=== PATIENT | female | born 2000 | race Hispanic/Latino ===

== ENCOUNTER 2022-01-16 13:44 | Emergency (ER) | payer OTHER ==
[2022-01-16] MEDS ORDERED: IBUPROFEN 200 MG TAB PO ONE (14:20)
--- NOTE | 2022-01-16 15:30 | EDPHYS ---
Physician Documentation [facility] Name: Blanca Oquendo Age: 21 yrs Sex: Female : 2000 Arrival Date: 01/16/2022 Time: 13:50 Bed 10 Private MD: ED Physician Royer Odom HPI: 01/16 14:04 This 21 yrs old Female presents to ER via Ambulatory with complaints of snw Headache, Breathing Difficulty. 14:04 The patient complains of pain to the forehead. Onset: The symptoms/episode snw began/occurred acutely. Associated signs and symptoms: Pertinent negatives: altered mental status, neck stiffness, Photophobia vertigo. Severity of symptoms: At its worst the pain was moderate, in the emergency department the pain is unchanged. The patient has not experienced similar symptoms in the past. The patient has not recently seen a physician. 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 - Social history:: Smoking status: Reported history of juuling and/or vaping. Patient uses alcohol, occasionally. ROS: 14:03 Constitutional: Negative for fever, chills, and weight loss, Positive for malaise, snw congestion Eyes: Negative for injury, pain, redness, and discharge, ENT: Negative for injury, pain, and discharge, + congestion Neck: Negative for injury, pain, and swelling, Cardiovascular: Negative for chest pain, palpitations, and edema, Respiratory: Negative for shortness of breath, cough, wheezing, and pleuritic chest pain, Abdomen/GI: Negative for abdominal pain, nausea, vomiting, diarrhea, and constipation, Back: Negative for injury and pain, : Negative for injury, bleeding, discharge, and swelling, MS/Extremity: Negative for injury and deformity, Skin: Negative for injury, rash, and discoloration. 14:03 Neuro: Positive for headache. Exam: 14:02 Constitutional: This is a well developed, well nourished patient who is awake, alert, snw and in no acute distress. Head/Face: Normocephalic, atraumatic. Eyes: Pupils equal round and reactive to light, extra-ocular motions intact. Lids and lashes normal. Conjunctiva and sclera are non-icteric and not injected. Cornea within normal limits. Periorbital areas with no swelling, redness, or edema. 14:02 Neck: Trachea midline, no thyromegaly or masses palpated, and no cervical lymphadenopathy. Supple, full range of motion without nuchal rigidity, or vertebral point tenderness. No Meningismus. Chest/axilla: Normal chest wall appearance and motion. Nontender with no deformity. No lesions are appreciated. Cardiovascular: Regular rate and rhythm with a normal S1 and S2. No gallops, murmurs, or rubs. Normal PMI, no JVD. No pulse deficits. Respiratory: Lungs have equal breath sounds bilaterally, clear to auscultation and percussion. No rales, rhonchi or wheezes noted. No increased work of breathing, no retractions or nasal flaring. Abdomen/GI: Soft, non-tender, with normal bowel sounds. No distension or tympany. No guarding or rebound. No evidence of tenderness throughout. Back: No spinal tenderness. No costovertebral tenderness. Full range of motion. Skin: Warm, dry with normal turgor. Normal color with no rashes, no lesions, and no evidence of cellulitis. MS/ Extremity: Pulses equal, no cyanosis. Neurovascular intact. Full, normal range of motion. Neuro: Awake and alert, GCS 15, oriented to person, place, time, and situation. Cranial nerves II-XII grossly intact. Motor strength 5/5 in all extremities. Sensory grossly intact. Cerebellar exam normal. Normal gait. 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 Vital Signs: 13:56 BP 124 / 87; Pulse 69; Resp 18; Temp 98.9; Pulse Ox 100% ; Weight 58.51 kg; Height 5 ap3 ft. 5 in. (165.10 cm); 13:56 Body Mass Index 21.47 (58.51 kg, 165.10 cm) ap3 Willow Coma Score: 15:32 Eye Response: spontaneous(4). Verbal Response: oriented(5). Motor Response: obeys snw commands(6). Total: 15. MDM: 14:06 Patient medically screened. snw 15:32 Data reviewed: vital signs, nurses notes. Data interpreted: Pulse oximetry: on room air snw is 100 %. Interpretation: normal. Counseling: I had a detailed discussion with the patient and/or guardian regarding: the historical points, exam findings, and any diagnostic results supporting the discharge/admit diagnosis, lab results, the need for outpatient follow up, to return to the emergency department if symptoms worsen or persist or if there are any questions or concerns that arise at home. Special discussion: Based on the history and exam findings, there is no indication for further emergent testing or inpatient evaluation. I discussed with the patient/guardian the need to see the primary care provider for further evaluation of the symptoms. 01/16 14:02 Order name: Flu snw 01/16 14:02 Order name: Strep snw 01/16 14:02 Order name: SARS RAPID snw 01/16 14:54 Order name: Influenza Screen (A ; Complete Time: 14:54 EDMS 01/16 14:54 Order name: Group A Streptococcus Rapid Sc; Complete Time: 14:54 EDMS 01/16 15:26 Order name: SARS-COV-2 RT PCR; Complete Time: 15:26 EDMS Administered Medications: 14:32 Drug: Motrin (ibuprofen) 600 mg Route: PO; ss Disposition: 15:53 PA/WINCHER's history reviewed, patient interviewed, and examined. I agree with assessment [id number] and care plan and confirm the diagnosis (es) above. Attestation: The patient's history, exam findings, diagnostics, and a summary of any interventions or procedures was reviewed in detail with Jayna Florez RN. Disposition Summary: 01/16/22 15:30 Discharge Ordered Location: Home snw Condition: Stable snw Diagnosis - Allergic rhinitis, unspecified snw Followup: snw - With: Emergency Department - When: As needed - Reason: Worsening of condition Followup: snw - With: Private Physician - When: 2 - 3 days - Reason: Recheck today's complaints, Continuance of care, Re-evaluation by your physician Discharge Instructions: - Discharge Summary Sheet snw - General Headache Without Cause snw - Allergic Rhinitis, Adult snw - Form - Headache Record snw Forms: - Medication Reconciliation Form snw - Thank You Letter snw - Antibiotic Education snw - Prescription Opioid Use snw - Work release form Prescriptions: - Zyrtec 10 mg Oral Tablet - take 1 tablet by ORAL route once daily As needed; 20 tablet; Refills: 0, snw Product Selection Permitted - Pepcid 20 mg Oral Tablet - take 1 tablet by ORAL route once daily; 20 tablet; Refills: 0, Product snw Selection Permitted Signatures: Dispatcher [employer] EDKinza Flower FNP-C JEWELRY MOLD MAKER-[place] Jayna Florez RN RN Lakesha Ramos RN RN ap3 Royer Odom MD MD jr11
--- NOTE | 2022-01-16 15:30 | ER ---
Nurse's Notes [facility] Name: Blanca Oquendo Age: 21 yrs Sex: Female : 2000 Arrival Date: 01/16/2022 Time: 13:50 Bed 10 Private MD: Diagnosis: Allergic rhinitis, unspecified Presentation: 01/16 13:56 Chief complaint: Patient states: she started having a headache Sunday01/11/2022, and ap3 it has not gotten any better or any worse since. patient states she does not have any nausea or vomiting associated with the pain. Patient reports being around people who have been sick, and she has been coughing with mild congestion. Coronavirus screen: At this time, the client does not indicate any symptoms associated with coronavirus-19. Ebola Screen: No symptoms or risks identified at this time. Initial Sepsis Screen: Does the patient meet any 2 criteria? No. Patient's initial sepsis screen is negative. Does the patient have a suspected source of infection? No. Patient's initial sepsis screen is negative. Risk Assessment: Do you want to hurt yourself or someone else? Patient reports no desire to harm self or others. Onset of symptoms was January 11, 2022. 13:56 Method Of Arrival: Ambulatory ap3 13:56 Acuity: MEREDITH 3 ap3 Triage Assessment: 14:00 Headache History: The patient has had previous headaches and this one is similar to ap3 previous episodes. General: Appears. General: Appears uncomfortable, Behavior is calm, cooperative. Pain: Complains of pain in head Pain currently is 7 out of 10 on a pain scale. Pain began gradually, last sunday Also complains of no other associated symptoms. EENT: Reports pain when swallowing. Neuro: Level of Consciousness is awake, alert, obeys commands, Oriented to person, place, time, situation, Gait is steady, Speech is normal. Cardiovascular: Patient's skin is warm and dry. Respiratory: Reports cough that is Airway is patent Respiratory effort is even, unlabored, Respiratory pattern is regular, symmetrical. 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 - Social history:: Smoking status: Reported history of juuling and/or vaping. Patient uses alcohol, occasionally. Screenin:00 Abuse screen: Denies threats or abuse. Nutritional screening: No deficits noted. ap3 Tuberculosis screening: No symptoms or risk factors identified. Fall Risk None identified. Assessment: 15:42 General: Appears in no apparent distress. comfortable, Behavior is calm, cooperative. ss Neuro: Level of Consciousness is awake, alert, obeys commands, Oriented to person, place, time, situation. Cardiovascular: Capillary refill < 3 seconds is brisk in bilateral fingers. Respiratory: Airway is patent Respiratory effort is even, unlabored, Respiratory pattern is regular, symmetrical. Derm: Skin is intact, is healthy with good turgor, Skin is dry, Skin is pink, warm \T\ dry. normal. Musculoskeletal: Circulation, motion, and sensation intact. Range of motion: intact in all extremities, Swelling absent. Vital Signs: 13:56 BP 124 / 87; Pulse 69; Resp 18; Temp 98.9; Pulse Ox 100% ; Weight 58.51 kg; Height 5 ap3 ft. 5 in. (165.10 cm); 13:56 Body Mass Index 21.47 (58.51 kg, 165.10 cm) ap3 Gely Coma Score: 15:32 Eye Response: spontaneous(4). Verbal Response: oriented(5). Motor Response: obeys snw commands(6). Total: 15. ED Course: 13:50 Patient arrived in ED. rg4 13:52 Kinza Church FNP-C [facility] snw 13:52 Royer Odom MD is Attending Physician. snw 13:58 Triage completed. ap3 14:01 Arm band placed on right wrist. ap3 14:18 Jayna Florez, ROHAN is Primary Nurse. ss 15:42 Patient has correct armband on for positive identification. Bed in low position. Call ss light in reach. 15:42 No provider procedures requiring assistance completed. Patient did not have IV access ss during this emergency room visit. Administered Medications: 14:32 Drug: Motrin (ibuprofen) 600 mg Route: PO; ss Medication: 14:01 VIS not applicable for this client. ap3 Outcome: 15:30 Discharge ordered by . snw 15:43 Discharged to home ambulatory, with family. 15:43 Condition: good 15:43 Discharge instructions given to patient, family, Instructed on discharge instructions, follow up and referral plans. Demonstrated understanding of instructions, follow-up care. 15:43 Patient left the ED. Signatures: Kinza Church, PHYSICIAN RELATIONS REPRESENTATIVE-C PHYSICIAN RELATIONS REPRESENTATIVE-Csnw Jayna Florez RN RN ss Ally Srivastava rg4 Lakesha Ramos RN RN ap3
[2022-01-16 16:09] VITALS: BP 124/87; TEMP 98.9; O2SAT 100
== END 2022-01-16 15:43 | disposition home or self-care (01) ==
LOC: ER 13:44
DX: J30.9 Allergic rhinitis, unspecified (principal); Z88.6 Allergy status to analgesic agent; Z20.822 Contact with and (suspected) exposure to COVID-19
CPT/HCPCS: 87070; 87081; 87804 ×2; 99283; U0003

== ENCOUNTER → 2023-06-29 | Emergency (ER) | payer OTHER ==
--- NOTE | 2023-06-29 18:45 | RAD REPORT ---
[facility]25 pm CLINICAL HISTORY: CHEST PAIN COMPARISON: Chest Pa And Lat (2 Views) dated 11/08/2022 TECHNIQUE: Portable AP view of the chest. FINDINGS: The lungs are clear. No pneumothorax or effusion. The cardiomediastinal contours are unre markable. IMPRESSION: No acute cardiopulmonary process.
[2023-06-29 18:59] LABS: Sqamous Epithelial <5 /HPF (None Seen); Urine Bacteria <20 /HPF (<20); Urine Bilirubin NEGATIVE (Negative); Urine Blood Negative (Negative); Urine Clarity Turbid (Clear); Urine Color Light-Yellow (Yellow); Urine Culture Reflex Order NOT NEEDED; Urine Glucose NEGATIVE (Negative); Urine Ketones NEGATIVE (Negative); Urine Microscopic Reflex YN ORDER UMIC; Urine Mucus Slight /HPF (None Seen); Urine Nitrite NEGATIVE (Negative); Urine Protein NEGATIVE (Negative); Urine RBC <5 /HPF (None Seen); Urine Urobilinogen Normal (Normal); Urine WBC <5 /HPF (<5)
--- NOTE | 2023-06-29 20:00 | EDPHYS ---
Physician Documentation [facility] Name: Blanca Oquendo Age: 23 yrs Sex: Female : 2000 Arrival Date: 06/29/2023 Time: 17:50 Bed 12 Private MD: ED Physician Vamshi Lang HPI: 06/29 00:25 This 23 yrs old Female presents to ER via Ambulatory with complaints of Back kb Pain. 00:25 Patient is a 23-year-old female who presents for diffuse back pain,, chest pain, kb abdominal tightness that started 1 week ago. Denies nausea, vomiting, diarrhea, constipation, fever, urinary symptoms. States she has anxiety and believes the symptoms may be due to anxiety.. Historical: - Allergies: 06/28 18:14 Codeine; ll1 - Home Meds: 18:14 None [Active]; ll1 - PMHx: 18:14 Heart murmur; ll1 - PSHx: 18:14 ear surgery; ll1 - Immunization history:: Adult Immunizations unknown. - Social history:: Smoking status: Patient denies any tobacco usage or history of. ROS: 06/29 00:25 Constitutional: As per HPI kb Exam: 00:25 Constitutional: This is a well developed, well nourished patient who is awake, alert, kb and in no acute distress. Head/Face: Normocephalic, atraumatic. ENT: Moist Mucous membranes Neck: Trachea midline, no thyromegaly or masses palpated, and no cervical lymphadenopathy. Supple, full range of motion without nuchal rigidity, or vertebral point tenderness. No Meningismus. Cardiovascular: Regular rate Respiratory: Respirations even and unlabored. No increased work of breathing. Talking in full sentences Abdomen/GI: Soft, non-tender. No distention Back: No spinal tenderness. No costovertebral tenderness. Full range of motion. Skin: Warm, dry with normal turgor. Normal color. MS/ Extremity: Pulses equal, no cyanosis. Neurovascular intact. Full, normal range of motion. Neuro: Awake and alert, GCS 15, oriented to person, place, time, and situation. Moves all extremities. Normal gait. Vital Signs: 06/28 18:12 BP 120 / 90; Pulse 85; Resp 16; Temp 97.8; Pulse Ox 100% on R/A; Weight 58.97 kg; ll1 Height 5 ft. 0 in. ; Pain 7/10; 20:15 BP 107 / 88; Pulse 72; Resp 19; Pulse Ox 99% on R/A; kd3 18:12 Body Mass Index 25.39 (58.97 kg, 152.4 cm) ll1 18:12 Pain Scale: Adult ll1 MDM: 17:54 Patient medically screened. kb 06/29 00:26 Differential diagnosis: Abnormal EKG, pneumonia, UTI, anxiety. Data reviewed: vital kb signs, nurses notes. Test considered but Not performed: Labs: CBC, CMP considered but patient has no abdominal tenderness. Historians other than the Patient: Parent: Mother. Counseling: I had a detailed discussion with the patient and/or guardian regarding the historical points, exam findings, and any diagnostic results supporting the discharge/admit diagnosis, lab results, radiology results, the need for outpatient follow up, a family practitioner, to return to the emergency department if symptoms worsen or persist or if there are any questions or concerns that arise at home. 06/28 18:12 Order name: Test, Urine; Complete Time: 19:00 kb 06/28 18:12 Order name: Urinalysis w/ reflexes; Complete Time: 19:00 kb 06/28 18:12 Order name: Chest Single View XRAY; Complete Time: 18:48 kb 06/28 18:12 Order name: EKG; Complete Time: 18:12 kb 06/28 18:12 Order name: EKG - Nurse/Tech; Complete Time: 19:22 kb Administered Medications: No medications were administered Disposition Summary: 06/29/23 19:59 Discharge Ordered Notes: Location: Home kb Condition: Stable kb Diagnosis - Back Pain kb - Chest pain, unspecified kb Followup: kb - With: Emergency Department - When: As needed - Reason: Worsening of condition Followup: kb - With: Private Physician - When: 2 - 3 days - Reason: Recheck today's complaints, Continuance of care, Re-evaluation by your physician Discharge Instructions: - Discharge Summary Sheet kb - Acute Back Pain, Adult kb - Nonspecific Chest Pain, Adult, [id number] kb Forms: - Work release form kb - Medication Reconciliation Form kb - Thank You Letter kb - Antibiotic Education kb - Prescription Opioid Use kb - Patient Portal Instructions kb - Leadership Thank You Letter kb Signatures: Dispatcher [employer] Kaylah Dominguez, SHIPPING ASSOCIATE-C SHIPPING ASSOCIATE-Ckb Cathryn Justice, RN RN ll1
--- NOTE | 2023-06-29 20:00 | ER ---
Nurse's Notes [facility] Name: Blanca Oquendo Age: 23 yrs Sex: Female : 2000 Arrival Date: 06/29/2023 Time: 17:50 Bed 12 Private MD: Diagnosis: Back Pain;Chest pain, unspecified Presentation: 06/28 18:12 Chief complaint: Patient states: Pt c/o back, shoulder and upper chest pain since last ll1 week. Pt denies N/V/D, fever/chills, cough, SOB. Pt denies injury or strain. Coronavirus screen: At this time, the client does not indicate any symptoms associated with coronavirus-19. Ebola Screen: No symptoms or risks identified at this time. Initial Sepsis Screen: Does the patient meet any 2 criteria? No. Patient's initial sepsis screen is negative. Does the patient have a suspected source of infection? No. Patient's initial sepsis screen is negative. Risk Assessment: Do you want to hurt yourself or someone else? Patient reports no desire to harm self or others. Onset of symptoms was June 23, 2023. 18:12 Method Of Arrival: Ambulatory ll1 18:12 Acuity: MEREDITH 3 ll1 Triage Assessment: 18:15 General: Appears uncomfortable, Behavior is calm, cooperative. Pain: Complains of pain ll1 in back and chest. EENT: No deficits noted. No signs and/or symptoms were reported regarding the EENT system. Neuro: No deficits noted. Cardiovascular: No deficits noted. Respiratory: No deficits noted. GI: No deficits noted. No signs and/or symptoms were reported involving the gastrointestinal system. : No deficits noted. No signs and/or symptoms were reported regarding the genitourinary system. Musculoskeletal: Capillary refill < 3 seconds. Historical: - Allergies: 18:14 Codeine; ll1 - Home Meds: 18:14 None [Active]; ll1 - PMHx: 18:14 Heart murmur; ll1 - PSHx: 18:14 ear surgery; ll1 - Immunization history:: Adult Immunizations unknown. - Social history:: Smoking status: Patient denies any tobacco usage or history of. Screenin:21 [facility] ED Fall Risk Assessment (Adult) History of falling in the last 3 months, mb9 including since admission No falls in past 3 months (0 pts) Confusion or Disorientation No (0 pts) Intoxicated or Sedated No (0 pts) Impaired Gait No (0 pts) Mobility Assist Device Used No (0 pt) Altered Elimination No (0 pt) Score/Fall Risk Level 0 - 2 = Low Risk Oriented to surroundings, Maintained a safe environment, Educated pt \T\ family on fall prevention, incl call for assistance when getting out of bed. Abuse screen: Denies threats or abuse. Nutritional screening: No deficits noted. Tuberculosis screening: No symptoms or risk factors identified. Assessment: 19:21 Reassessment: pt brought back to ER room. mb9 20:07 General: Appears in no apparent distress. Behavior is calm, cooperative. Neuro: Level kd3 of Consciousness is awake, alert, obeys commands, Oriented to person, place, time, situation. Vital Signs: 18:12 BP 120 / 90; Pulse 85; Resp 16; Temp 97.8; Pulse Ox 100% on R/A; Weight 58.97 kg; ll1 Height 5 ft. 0 in. ; Pain 7/10; 20:15 BP 107 / 88; Pulse 72; Resp 19; Pulse Ox 99% on R/A; kd3 18:12 Body Mass Index 25.39 (58.97 kg, 152.4 cm) ll1 18:12 Pain Scale: Adult ll1 ED Course: 17:53 Patient arrived in ED. mg5 17:54 Kaylah Catalan FNP-C [facility]. kb 17:54 Vamshi Lang MD is Attending Physician. kb 18:14 Triage completed. ll1 18:15 Arm band placed on right wrist. ll1 18:27 Chest Single View XRAY In Process Unspecified. EDMS 18:47 Test, Urine Sent. tl4 18:47 Urinalysis w/ reflexes Sent. tl4 19:21 Placed in gown. Bed in low position. Call light in reach. Side rails up X 1. Provided mb9 Education on: press call light if needing something. Client placed on continuous cardiac and pulse oximetry monitoring. NIBP monitoring applied. monitor car operator on. Door closed. Noise minimized. Warm blanket given. 19:21 EKG done, by ED staff, reviewed by Kaylah PEARCE. mb9 20:15 No provider procedures requiring assistance completed. Patient did not have IV access kd3 during this emergency room visit. Administered Medications: No medications were administered Medication: 20:15 VIS not applicable for this client. kd3 Outcome: 19:59 Discharge ordered by MD. arthur 20:15 Discharged to home ambulatory, kd3 20:15 Condition: stable 20:15 Discharge instructions given to patient, family, Instructed on discharge instructions, follow up and referral plans. Demonstrated understanding of instructions, follow-up care, 20:16 Patient left the ED. kd3 Signatures: Dispatcher [employer] EDCT Kaylah Catalan, SENIOR PUBLICATIONS SPECIALIST-C SENIOR PUBLICATIONS SPECIALIST-Cathryn Ugalde, RN RN ll1 Zoie Clark RN RN kd3 Jenifer Mckinney RN RN [id number] Mary Beth Mcdonnell mg5 Shaun Russ RN RN tl4
[2023-06-29 20:48] VITALS: BP 107/88; TEMP 97.8; O2SAT 99
--- NOTE | 2023-07-01 15:30 | EKG ---
Test Date: 2023-06-29 Test Time: 19:08:15 Finished Cloth Checker: MB MEASUREMENT RESULTS: Intervals: Rate: 67 OH: 118 QRSD: 96 QT: 400 QTc: 422 [place]: P: 67 OH: 118 QRS: 81 T: 63 INTERPRETIVE STATEMENTS: Normal sinus rhythm Normal ECG Compared to ECG 07/13/2015 17:33:08 No significant changes Electronically Signed On 07-01-23 15:29:52 CDT by Armand Toscano
== END ==
LOC: ER 17:50
DX: M54.9 Dorsalgia, unspecified (principal); R07.9 Chest pain, unspecified; Z88.5 Allergy status to narcotic agent
CPT/HCPCS: 71045; 81001; 81025; 93005; 99284

== ENCOUNTER 2023-10-09 09:32 | Emergency (ER) | payer OTHER, SELFPAY ==
[2023-10-09 09:53] LABS: Absolute Eosinophils 0.1 K/uL (0-0.5); Absolute Lymphocytes (CBC) 1.5 K/uL (0.7-4.9); Absolute Monocytes 0.5 K/uL (0.1-1.3); Absolute Neutrophil 4.8 K/uL (1.8-8.0); Basophils % 0.3 % (0-1.3); Eosinophils % 1.3 % (0-4.4); Hematocrit 37.4 % (36.0-45.0); Hemoglobin 12.5 g/dL (12.0-15.0); Lymphocytes % 21.6 % (15.3-44.8); MCH 30.3 pg (27.0-35.0); MCHC 33.5 g/dL (32.0-36.0); MCV 90.4 fL (80-100); Monocytes % 6.7 % (3.3-12.3); Neutrophils % 70.1 % (41.7-73.7); Platelets 226 thou/uL (152-406); RBC Red Blood Cell Count 4.14 M/uL (3.86-4.86); Red Cell Distribution Width 13.9 % (12.1-15.2)
[2023-10-09 10:11] LABS: Anion Gap 7.5 mEq/L (5.0-15.0); Magnesium 2.2 mg/dL (1.6-2.4); Potassium 3.5 mEq/L (3.5-5.1); Troponin High Sensitivity 3.2 pg/mL (<58.9)
--- NOTE | 2023-10-09 13:37 | ER ---
Nurse's Notes [facility] Name: Blanca Oquendo Age: 23 yrs Sex: Female : 2000 Arrival Date: 10/09/2023 Time: 09:32 Bed 17 Private MD: Diagnosis: Chest pain, unspecified Presentation: 10/08 09:37 Chief complaint: EMS states: Chest pain started 1 hour ago prior to arrival, denies rs5 n/v, or recent illness. Has had similar episodes in the past, diagnosed with anxiety but has been noncompliant with her meds. Coronavirus screen: At this time, the client does not indicate any symptoms associated with coronavirus-19. Ebola Screen: No symptoms or risks identified at this time. Initial Sepsis Screen: Does the patient meet any 2 criteria? No. Patient's initial sepsis screen is negative. Does the patient have a suspected source of infection? No. Patient's initial sepsis screen is negative. Risk Assessment: Do you want to hurt yourself or someone else? Patient reports no desire to harm self or others. Onset of symptoms was October 09, 2019. 09:37 Method Of Arrival: EMS: [facility] rs5 09:37 Acuity: MEREDITH 3 rs5 Triage Assessment: 09:39 General: Appears in no apparent distress. uncomfortable, Behavior is calm, cooperative. 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 - Infectious Disease History:: Denies. - Social history:: Smoking status: Patient denies any tobacco usage or history of. Screenin:33 [facility] ED Fall Risk Assessment (Adult) History of falling in the last 3 months, rs5 including since admission No falls in past 3 months (0 pts) Confusion or Disorientation No (0 pts) Intoxicated or Sedated No (0 pts) Impaired Gait No (0 pts) Mobility Assist Device Used No (0 pt) Altered Elimination No (0 pt) Score/Fall Risk Level 0 - 2 = Low Risk Oriented to surroundings, Maintained a safe environment. Abuse screen: Denies threats or abuse. Nutritional screening: No deficits noted. Tuberculosis screening: No symptoms or risk factors identified. Assessment: 09:33 General: Appears in no apparent distress. uncomfortable, Behavior is cooperative, rs5 anxious. 09:33 Pain: Complains of pain in chest Pain currently is 7 out of 10 on a pain scale. Quality rs5 of pain is described as aching, heavy, Is continuous. Neuro: Level of Consciousness is awake, alert, obeys commands, Oriented to person, place, time, situation. Cardiovascular: Patient's skin is warm and dry. Respiratory: Airway is patent Respiratory effort is even, unlabored, Respiratory pattern is regular, symmetrical. GI: Abdomen is round non-distended, Abd is soft and non tender X 4 quads. : No signs and/or symptoms were reported regarding the genitourinary system. EENT: No signs and/or symptoms were reported regarding the EENT system. Derm: Skin is intact, Skin is pink, warm \T\ dry. Musculoskeletal: Range of motion: intact in all extremities. 10:05 Reassessment: Patient and/or family updated on plan of care and expected duration. Pain rs5 level reassessed. Patient is alert, oriented x 3, equal unlabored respirations, skin warm/dry/pink. provider notified pt is continuing to experience pain, rating 7/10 to chest, described as aching, duration continuouse . 11:10 Reassessment: Patient and/or family updated on plan of care and expected duration. Pain rs5 level reassessed. Patient is alert, oriented x 3, equal unlabored respirations, skin warm/dry/pink. Patient denies pain at this time. Patient states feeling better. 12:15 Reassessment: No changes from previously documented assessment. rs5 13:35 Reassessment: Patient and/or family updated on plan of care and expected duration. Pain rs5 level reassessed. Patient is alert, oriented x 3, equal unlabored respirations, skin warm/dry/pink. Vital Signs: 09:37 BP 127 / 69; Pulse 70; Resp 17; Temp 97.8(O); Pulse Ox 99% on R/A; rs5 10:00 BP 111 / 79; Pulse 67; Resp 11; Pulse Ox 100% on R/A; me1 11:00 BP 108 / 77; Pulse 62; Resp 13; Pulse Ox 98% on R/A; me1 12:00 BP 115 / 81; Pulse 72; Resp 16; Pulse Ox 98% on R/A; me1 14:00 BP 104 / 72; Pulse 65; Resp 14; Pulse Ox 100% on R/A; me1 14:01 BP 103 / 72; Pulse 64; Resp 14; Pulse Ox 100% on R/A; me1 ED Course: 09:33 Patient arrived in ED. ms3 09:33 Parag Fung DO is Attending Physician. ms3 09:33 Arm band placed on right wrist. rs5 09:33 Patient has correct armband on for positive identification. Bed in low position. Call rs5 light in reach. Side rails up X2. 09:37 Sam Allen, RN is Primary Nurse. rs5 09:39 Triage completed. rs5 10:07 No provider procedures requiring assistance completed. rs5 12:01 XRAY Chest (1 view) In Process Unspecified. EDMS 13:37 Campbell Peters DO is Referral Physician. ms3 14:05 Provided Education on: POC. Verbalized understanding. . me1 14:06 IV discontinued, intact, bleeding controlled, No redness/swelling at site. Pressure me1 dressing applied. Administered Medications: No medications were administered Medication: 14:05 VIS not applicable for this client. me1 Outcome: 13:37 Discharge ordered by . ms3 14:05 Discharged to home ambulatory, with family, me1 14:05 Condition: stable 14:05 Discharge instructions given to patient, family, Instructed on discharge instructions, follow up and referral plans. Demonstrated understanding of instructions, follow-up care, 14:06 Patient left the ED. me1 Signatures: Dispatcher [employer] EDMS Parag Fung DO DO ms3 Sam Allen, RN RN rs5 Anu Ortiz RN RN me1
--- NOTE | 2023-10-09 13:38 | EDPHYS ---
Physician Documentation [facility] Name: Blanca Oquendo Age: 23 yrs Sex: Female : 2000 Arrival Date: 10/09/2023 Time: 09:32 Bed 17 Private MD: ED Physician Parag Fung HPI: 10/08 11:14 This 23 yrs old Female presents to ER via EMS with complaints of Chest Pain. [facility] 11:14 23-year-old female with past medical history of heart murmur, anxiety presents to the [facility] emergency department via [facility] for chest pain that began 1 hour prior to arrival. Patient states the pain is midsternal, rated 7/10, and described as being tight. Patient states she has experienced similar episode previous to this. EMS administered aspirin 324 mg prior to arrival. 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 - Infectious Disease History:: Denies. - Social history:: Smoking status: Patient denies any tobacco usage or history of. ROS: 11:14 Constitutional: Negative for fever, and chills. Neck: Negative for injury, pain, and ms3 swelling, Respiratory: Negative for shortness of breath, cough, wheezing, and pleuritic chest pain, Abdomen/GI: Negative for abdominal pain, nausea, vomiting, diarrhea, and constipation, MS/Extremity: Negative for injury and deformity, Skin: Negative for injury, rash, and discoloration, 11:14 Cardiovascular: Positive for chest pain, Exam: 11:14 Constitutional: This is a well developed, well nourished patient who is awake, alert, ms3 and in no acute distress. Head/Face: Normocephalic, atraumatic. Neck: Trachea midline, no cervical lymphadenopathy. Supple, full range of motion without nuchal rigidity, or vertebral point tenderness. No Meningismus. Chest/axilla: Normal chest wall appearance and motion. Nontender with no deformity. Cardiovascular: Regular rate and rhythm with a normal S1 and S2. No gallops, murmurs, or rubs. Normal PMI, no JVD. No pulse deficits. Respiratory: Lungs have equal breath sounds bilaterally, clear to auscultation and percussion. No rales, rhonchi or wheezes noted. No increased work of breathing, no retractions or nasal flaring. Abdomen/GI: Soft, non-tender, with normal bowel sounds. No distension or tympany. No guarding or rebound. No evidence of tenderness throughout. Skin: Warm, dry with normal turgor. Normal color with no rashes, no lesions, and no evidence of cellulitis. MS/ Extremity: Pulses equal, no cyanosis. Neurovascular intact. Full, normal range of motion. 11:22 ECG was reviewed by the Attending Physician. ms3 Vital Signs: 09:37 BP 127 / 69; Pulse 70; Resp 17; Temp 97.8(O); Pulse Ox 99% on R/A; rs5 10:00 BP 111 / 79; Pulse 67; Resp 11; Pulse Ox 100% on R/A; me1 11:00 BP 108 / 77; Pulse 62; Resp 13; Pulse Ox 98% on R/A; me1 12:00 BP 115 / 81; Pulse 72; Resp 16; Pulse Ox 98% on R/A; me1 14:00 BP 104 / 72; Pulse 65; Resp 14; Pulse Ox 100% on R/A; me1 14:01 BP 103 / 72; Pulse 64; Resp 14; Pulse Ox 100% on R/A; me1 MDM: 09:35 Patient medically screened. ms3 11:14 Differential diagnosis: abnormal EKG, chest wall pain, pneumonia. ms3 16:25 HEART Score: History: Slightly Suspicious (0), ECG: Normal (0), Age: < or = 45 years ms3 (0), Risk Factors: No Risk Factors Known (0), Troponin: < or = 1 x Normal Limit (0), Total Score = 0. Data reviewed: vital signs, nurses notes, lab test result(s), radiologic studies, and as a result, I will discharge patient. Historians other than the Patient: EMS: [facility]. Counseling: I had a detailed discussion with the patient and/or guardian regarding the historical points, exam findings, and any diagnostic results supporting the discharge/admit diagnosis, lab results, radiology results, the need for outpatient follow up, to return to the emergency department if symptoms worsen or persist or if there are any questions or concerns that arise at home. Special discussion: Based on the patient's history, exam, and Dx evaluation, there is no indication for emergent intervention or inpatient Tx. It is understood by the patient/guardian that if the Sx's persist or worsen they need to return immediately for re-evaluation. ED course: Discussed labs and imaging with patient and her mother. Patient states she believes she strained a muscle in her chest as her pain began after lifting an object from above her head and putting it in the truck. Patient follow-up with her primary care physician 2 to 3 days. Patient understands and agrees with plan. All questions were answered. Return precautions discussed include worsening symptoms, or any other concerns. 10/08 09:35 Order name: Basic Metabolic Panel; Complete Time: 11:13 ms3 10/08 09:35 Order name: CBC with Diff; Complete Time: 09:59 ms3 10/08 09:35 Order name: Magnesium; Complete Time: 11:13 ms3 10/08 09:35 Order name: Troponin HS; Complete Time: 11:13 ms3 10/08 09:35 Order name: XRAY Chest (1 view); Complete Time: 14:00 ms3 10/08 09:35 Order name: EKG; Complete Time: 09:35 ms3 10/08 09:35 Order name: Cardiac monitoring; Complete Time: 10:42 ms3 10/08 09:35 Order name: EKG - Nurse/Tech; Complete Time: 10:42 ms3 10/08 09:35 Order name: IV Saline Lock; Complete Time: 10:43 ms3 10/08 09:35 Order name: Labs collected and sent; Complete Time: 10:43 ms3 10/08 09:35 Order name: O2 Per Protocol; Complete Time: 10:43 ms3 10/08 09:35 Order name: O2 Sat Monitoring; Complete Time: 10:43 ms3 EC:22 Rate is 75 beats/min. Rhythm is regular. QRS Harrison is Normal. NV interval is normal. QRS ms3 interval is normal. QT interval is normal. Clinical impression: Normal ECG. Interpreted by me. Reviewed by me. Administered Medications: No medications were administered Disposition Summary: 10/09/23 13:37 Discharge Ordered Notes: Location: Home ms3 Condition: Stable ms3 Diagnosis - Chest pain, unspecified ms3 Followup: ms3 - With: Campbell Peters DO - When: 2 - 3 days - Reason: Recheck today's complaints Discharge Instructions: - Discharge Summary Sheet ms3 - Nonspecific Chest Pain, Adult ms3 Forms: - Medication Reconciliation Form ms3 - Antibiotic Education ms3 - Prescription Opioid Use ms3 - Patient Portal Instructions ms3 - Leadership Thank You Letter ms3 Signatures: Dispatcher [employer] EDParag Miller DO DO ms3 Sam Allen, RN RN rs5
--- NOTE | 2023-10-09 13:41 | RAD REPORT ---
[facility]04 pm CLINICAL HISTORY: CHEST PAIN COMPARISON: Chest Single View dated 06/29/2023; Chest Pa And Lat (2 Views) dated 11/08/2022 TECHNIQUE: Portable AP view of the chest. FINDINGS: The lungs are clear. No pneumothorax or effusion. The cardiomediastinal contours are unre markable. IMPRESSION: No acute cardiopulmonary process.
[2023-10-09 14:40] VITALS: BP 103/72; TEMP 97.8; O2SAT 100
--- NOTE | 2023-10-10 13:53 | EKG ---
Test Date: 2023-10-09 Test Time: 09:40:36 Beekeeper: BARRYW MEASUREMENT RESULTS: Intervals: Rate: 75 AR: 132 QRSD: 92 QT: 394 QTc: 439 Weidman: P: 34 AR: 132 QRS: 37 T: 23 INTERPRETIVE STATEMENTS: Normal sinus rhythm Normal ECG Compared to ECG 06/29/2023 19:08:15 No significant changes Electronically Signed On 10-10-23 13:49:39 CDT by Armand Toscano
== END 2023-10-09 14:06 | disposition home or self-care (01) ==
LOC: ER 09:32
DX: R07.9 Chest pain, unspecified (principal); F41.9 Anxiety disorder, unspecified; Z88.5 Allergy status to narcotic agent
CPT/HCPCS: 36415; 71045; 80048; 83735; 84484; 85025; 93005